=== PATIENT | female | born 1955 | race Caucasian/White ===

== ENCOUNTER 2021-06-24 10:00 | Outpatient (RCR) | payer MEDICARE, SELFPAY ==
--- NOTE | 2021-04-28 13:55 | PTOPEVAL ---
PHYSICAL THERAPY EVALUATION and PLAN OF CARE Thank you for referring Nicolette Mtz to [facility].? The patient is scheduled to be seen for therapy? 2x/week for 4 weeks. Please review, sign, date and return this plan of care DILIA. I agree with and certify that the following plan of care is medically necessary. Referring Physician Date Referring Provider: Gina Giles Evaluation Outpatient Past Medical History Neurological History Hx Other Neurological Disorders Yes: bilateral peripheral neuropathy Cardiovascular History Hx Hypertension Yes Respiratory History Hx Asthma Yes: exertional only, rescue inhaler Musculoskeletal History Hx Osteoporosis Yes Psychosocial History Hx Post Traumatic Stress Disorder Yes: just completed 6 months of rehab Diagnosis low back pain, B hip pain, B knee pain Onset chronic Subjective Information Has history of arthritis. The Query Text:As Reported By Patient/ pain was controlled with Family meloxicam, but the kidneys were starting to be effected and so she was taken off of that. She tried cymbalta but that had poor side effects and doctor is reluctant to put back on meloxicam so we are trying therapy. The back is typically the worst and with the knees the pain is effecting her day to day. When she was taking the meloxicam she was walking regularly and exercising throughout the week. Now that she is not taking medication she is not exercising anymore. Stairs: goes one step at a time. States she can stumble when she is walking Self Report Pain Assessment Bilateral Knee(s) Reported Pain Level 6 Pain Description Aching,Tightness Pain Frequency Chronic,Continuous Pain Aggravating Factors Stair Climbing,Weight Bearing/ Standing Pain Behaviors Anxious,Guarding Spine, Lumbar Reported Pain Level 6 Pain Description Aching,Tightness Radicular Pain Location right hip Pain Frequency Chronic,Continuous Pain Aggravating Factors Palpation,Stair Climbing,
--- NOTE | 2021-04-30 11:27 | PCPTNOTE ---
Patient did not show for appointment this date. Called and spoke with patient who states she forgot about her appointment today. Reminded patient of upcoming appointment on 05/05/21.
--- NOTE | 2021-05-27 10:47 | PTOPEVAL ---
PHYSICAL THERAPY PROGRESS REPORT Thank you for referring Nicolette Mtz to [facility].? The patient is scheduled to be seen for therapy? 1x/week for 5 weeks. Please review, sign, date and return this plan of care DILIA. I agree with and certify that the following plan of care is medically necessary. Referring Physician Date Referring Provider: Gina Giles Diagnosis low back pain, B hip pain, B knee pain Onset chronic Subjective Information reports that overall her pain Query Text:As Reported By Patient/ is better. States that she is Family bending better. She has been avoiding loading her daughter' s laundry sorter which was an aggravating factor. Self Report Pain Assessment Bilateral Knee(s) Reported Pain Level 5 Pain Description Aching,Tightness Pain Frequency Chronic,Continuous Pain Aggravating Factors Stair Climbing,Weight Bearing/ Standing Additional Pain Comments increased with walking and standing Spine, Lumbar Reported Pain Level 6 Pain Description Aching,Tightness Pain Frequency Chronic,Continuous Pain Aggravating Factors Palpation,Stair Climbing, Walking,Weight Bearing/ Standing Pain Score Pain Score 5,6: Self Report Interventions Used Interventions Used By Clinicians Exercise Pain Relief Interventions Used By Heat,Medication Patient Other Alleviating Interventions tylenol arthritis every 8 hours, gabapentin Cervical and Lumbar ROM Lumbar ROM Lumbar Flexion (0-90) 40 Query Text:Active in Degrees Lumbar Flexion Active [place] Query Text:Hands to: Lumbar Extension (0-40) 8 Query Text:Active in Degrees Lateral Rotation Right (0-45) 25 Query Text:Active in Degrees Lateral Rotation Left (0-45) 25 Query Text:Active in Degrees Lower Extremity Muscle Strength Testing Hip Strength Right Hip Flexion Strength 4 Good Hip Extension Strength 3- Fair - Hip Abduction Strength 3 Fair Left Hip Flexion Strength 4 Good Hip Extension Strength 3- Fair - Hip Abduction Strength 3+ Fair + Knee Strength Left Knee Flexion Strength 5 Normal Knee Extension Strength 5 Normal Ankle Strength Bilateral Ankle Dorsiflexion Strength 5 Normal Ankle Plantarflexion Strength 4 Good Muscle Length Testing Muscle Length Testing Left Hamstring Length -30
--- NOTE | 2021-06-29 10:07 | PCPTNOTE ---
Patient called & cancelled scheduled appointment this date due to going for a COVID TEST.
--- NOTE | 2021-07-15 10:37 | PCPTNOTE ---
PHYSICAL THERAPY DISCHARGE NOTE Patient:Nicolette Mtz Date of :1955 Patient has not returned for any further treatments since 06/24/2021, therefore she will be discharged at this time. Patient?s initial visit was on 04/28/2021. The goals have been partially met. Thank you for referring this patient to [facility]. Please review, sign, date and return this discharge summary DILIA. I have been updated about the patient's current status and I agree with discharge from the above service at this time. Referring Physician Date
== END 2021-07-16 10:19 | disposition home or self-care (01) ==
LOC: ANHPT 10:00
DX: M54.50 Low back pain, unspecified (principal); M25.551 Pain in right hip; M25.552 Pain in left hip; M25.561 Pain in right knee; M25.562 Pain in left knee; G89.29 Other chronic pain
CPT/HCPCS: 97110; 97140; 97163

== ENCOUNTER → 2021-07-02 00:57 | Outpatient (CLI) | payer MEDICARE, SELFPAY ==
[2021-07-03 18:18] LABS: SARS-CoV-2 RNA PCR Negative
== END ==
DX: Z20.822 Contact with and (suspected) exposure to COVID-19 (principal)
CPT/HCPCS: C9803; U0003; U0005

== ENCOUNTER 2025-05-02 08:00 | Outpatient (RCR) | payer MEDICARE, SELFPAY ==
--- NOTE | 2025-02-24 11:54 | OTOPEVAL1 ---
Assessment and note entered by Karl Shannon, BRITTANY/Jamal, CHT Evaluation Information Assessment Status Evaluation Diagnosis Injury of left wrist ICD-10 Condition Codes (OT) Pain in right wrist M25.531 Subjective Information Patient fell and sustained a left distal radius fracture 12/23/24. Non operative. She reports no pain at rest, but pain with particular wrist motions. She states that functionally she is limited with being able to open jars, soda bottles , cooking, and pinching to don socks and pants. Reported Pain Level Pain Score 0: Self Report Additional Pain Score Comments No pain at rest. 12/26 with wrist deviation. Assessment OT Clinical Summary Patient referred to OT s/p left wrist fracture as well as de Quervain's tenosynovitis. She presents with stiffness, pain, and weakness that limits return to left hand use for ADLs. Skilled OT indicated to maximize functional strength and use of her left UE. Plan of Care Interventions Therapeutic Exercise,Manual Therapy,Therapeutic Activities,Hot Pack/Cold Pack,Ultrasound,Paraffin OT Services Indicated Yes Treatment Frequency and 2x/week for 8 visits Duration These treatments will address the objective and functional deficits as defined above. The patient will be advanced safely and appropriately in order for the patient to progress towards his/her prior level of function. Additional exercises will be introduced and as well as a comprehensive home exercise program upon discharge, if needed, ?to ensure carryover of functional gains achieved in the clinic. This treatment plan has been reviewed and agreement upon by the patient.
--- NOTE | 2025-02-24 11:55 | OPREHPOC ---
Outpatient Therapy Plan of Care This is a Multidisciplinary Plan of Care that may contain components documented by all disciplines (PT, OT, and ST.) OT Problem 1 OT Problem #1 Knowledge Deficit OT Goal 1 Goal / Goal Update 1. Patient to be independent with instructed materials. Target Visit 8 OT Problem 2 OT Problem #2 Pain OT Goal 1 Goal / Goal Update 1. Patient to report reduced left wrist pain to 2/ 10 or less with ROM, specifically in the 1st and 2nd dorsal compartments (de Quervain's). Target Visit 8 OT Problem 3 OT Problem #3 Impaired Range of Motion OT Goal 1 Goal / Goal Update Patient to increase active ROM of the left wrist to increase functional flexibility for ADLs: 1. wrist flexion to 50 2. wrist extension to [address] to 15 4. wrist UD to 35 Target Visit 8 OT Problem 4 OT Problem #4 Impaired Strength OT Goal 1 Goal / Goal Update Patient to increase functional strength of the left wrist/hand to increase functional use for ADLs: 1. be able to progress to red putty for HEP 2. be able to progress to 1 lb. strengthening of the wrist in all planes x20 reps Target Visit 8
--- NOTE | 2025-03-03 13:02 | PCOTNOTE ---
Patient did not show up for scheduled appointment this date. Called patient who reports she just missed the appointment. Reminded her of her appointment on .
--- NOTE | 2025-03-24 09:05 | OTOPPROG ---
Assessment and note entered by Karl Shannon, OTR/L, CHT OT Progress Update 03/24/25 Assessment Status Progress Diagnosis Injury of left wrist ICD-10 Condition Codes (OT) Pain in right wrist M25.531 Subjective Information Patient reports progress since beginning therapy. She notes she is having less pain and is able to move through more ROM with less pain. 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 For example, when cooking she is able to move a kauffman to a near-by burner with the left hand, but if she needs to carry the kauffman any distance or if she needs to dump a kauffman out she continues to require the use of both UEs for this. She reports she is doing well with doing the dishes now. She states she is able to do plates and silverware with very low pain. She notes she will let pots and pans soak so it's easier for her to scrub. With pinching to don socks and pulling up pants - pt is now able to use the left to help compared to having the right hand to all of the task. ROM improvements: - supination improved from 75 to 80 deg., pain with forearm rotation decreased from 8-9/10 to 1/10 - pronation improved from 75 to 80 deg., pain with forearm rotation decreased from 8-9/10 to 1/10 - wrist flexion improved from 45 to 55 deg. - wrist extension improved from 50 to 60 deg. - wrist RD improved from 10 to 20 deg. - wrist UD improved from 15 tp 25 deg. - finger and thumb ROM remained WFL, pain with thumb ROM reduced from 8/10 to 0/10 (R) planning advisor strength 49 lbs. (L) planning advisor strength 39 lbs. Assessment OT Clinical Summary Patient referred to OT s/p left wrist fracture as well as dx of de Quervain's tenosynovitis. She is making excellent progress. Her ROM has returned to functional limits and she is experiencing less pain with ROM and functional use. She demonstrates residual weakness that limits return of use for heavier ADLs such as lifting pots/pans. She continues to experience pain when the wrist is stressed with resistive ADLs. Continued skilled OT indicated for continued use of modalities, progressive therapeutic exercise, manual therapy, and HEP progression to facilitate optimal functional use, reduced pain, and improved strength. Plan of Care Interventions Therapeutic Exercise,Manual Therapy,Therapeutic Activities,Hot Pack/Cold Pack,Ultrasound,Paraffin OT Services Indicated Yes Treatment Frequency and 2x/week for 8 visits Duration These treatments will address the objective and functional deficits as defined above. The patient will be advanced safely and appropriately in order for the patient to progress towards his/her prior level of function. Additional exercises will be introduced and as well as a comprehensive home exercise program upon discharge, if needed, ?to ensure carryover of functional gains achieved in the clinic. This treatment plan has been reviewed and agreement upon by the patient.
--- NOTE | 2025-03-24 09:06 | OPREHPOC ---
Outpatient Therapy Plan of Care This is a Multidisciplinary Plan of Care that may contain components documented by all disciplines (PT, OT, and ST.) OT Problem 1 OT Problem #1 Knowledge Deficit OT Goal 1 Goal / Goal Update 1. Patient to be independent with instructed materials. ---OT POC UPDATE 03/24/25--- 1. Met, continue as HEP is progressed Target Visit 16 OT Problem 2 OT Problem #2 Pain OT Goal 1 Goal / Goal Update 1. Patient to report reduced left wrist pain to 2/ 10 or less with ROM, specifically in the 1st and 2nd dorsal compartments (de Quervain's). ---OT POC UPDATE 03/24/25--- 1. Progressing, at times experiencing 6/10 with heavy lifting, continue to treat pain Target Visit 16 OT Problem 3 OT Problem #3 Impaired Range of Motion OT Goal 1 Goal / Goal Update Patient to increase active ROM of the left wrist to increase functional flexibility for ADLs: 1. wrist flexion to 50 2. wrist extension to [address] to 15 4. wrist UD to 35 ---OT POC UPDATE 03/24/25--- 1. Met 2. Met 3. Met 4. Met Target Visit 16 OT Problem 4 OT Problem #4 Impaired Strength OT Goal 1 Goal / Goal Update Patient to increase functional strength of the left wrist/hand to increase functional use for ADLs: 1. be able to progress to red putty for HEP 2. be able to progress to 1 lb. strengthening of the wrist in all planes x20 reps ---OT POC UPDATE 03/24/25--- 1. 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 Met - Upgrade goal: Progress to 2 lb. strengthening x20 reps Target Visit 16
--- NOTE | 2025-05-02 08:54 | OTOPDC ---
Assessment and note entered by Karl Shannon, BRITTANY/Jamal, CHT Assessment Status Discharge Diagnosis Injury of left wrist ICD-10 Condition Codes (OT) Pain in right wrist M25.531 Subjective Information Patient reports continued progress from last month . She notes overall experiencing less wrist pain with ADLs. She reports improved abilities to hold her books/Lui longer. She reports feeling like she is getting stronger, which has allowed her improved abilities to use the left hand to wash dishes and carry bags of groceries. She is now mostly back to grocery shopping on her own. She is now able to carry a laundry basket, using both UEs. She reports pain with prolonged UE use, like if she's driving a longer distance or holding a book for too long. ROM improvements: - supination remained WFL at 80 deg. - pronation remained WFL at 80 deg. - wrist flexion improved from 55 to 60 deg. - wrist extension remained WFL at 60 deg. - wrist RD remained WFL at 20 deg. - wrist UD remained WFL at 25 deg. - finger and thumb ROM remained WFL (R) [employer] systems administrator strength 59 lbs. (L) [employer] systems administrator strength improved from 39 lbs. to Reported Pain Level Pain Score 0: Self Report Additional Pain Score Comments No pain at rest. Pain at worst can get up to 3-4 /10 with prolonged use without a proper rest. Assessment OT Clinical Summary Patient referred to OT s/p left wrist fracture as well as dx of de Quervain's tenosynovitis. She has made excellent progress with therapy and has been compliant with all materials. Her ROM has returned to normal limits. Strength continues to make progress and she continues to use heavier hand weights for strengthening. She is progressing use during ADLs, performing heavier tasks with less pain. At this time she is independent with all materials and is ready for discharge. D/C OT with goals met and patient independent with HEP. Plan of Care OT Services Indicated No
--- NOTE | 2025-05-02 08:54 | OPREHPOC ---
Outpatient Therapy Plan of Care This is a Multidisciplinary Plan of Care that may contain components documented by all disciplines (PT, OT, and ST.) OT Problem 1 OT Problem #1 Knowledge Deficit OT Goal 1 Goal / Goal Update 1. Patient to be independent with instructed materials. ---OT POC UPDATE 03/24/25--- 1. Met, continue as HEP is progressed ---OT D/C 05/02/25--- 1. Met Target Visit 16 OT Problem 2 OT Problem #2 Pain OT Goal 1 Goal / Goal Update 1. Patient to report reduced left wrist pain to 2/ 10 or less with ROM, specifically in the 1st and 2nd dorsal compartments (de Quervain's). ---OT POC UPDATE 03/24/25--- 1. Progressing, at times experiencing 6/10 with heavy lifting, continue to treat pain ---OT D/C 05/02/25--- 1. Met Target Visit 16 OT Problem 3 OT Problem #3 Impaired Range of Motion OT Goal 1 Goal / Goal Update Patient to increase active ROM of the left wrist to increase functional flexibility for ADLs: 1. wrist flexion to 50 2. wrist extension to [address] to 15 4. wrist UD to 35 ---OT POC UPDATE 03/24/25--- 1. Met 2. Met 3. Met 4. Met Target Visit 16 OT Problem 4 OT Problem #4 Impaired Strength OT Goal 1 Goal / Goal Update Patient to increase functional strength of the left wrist/hand to increase functional use for ADLs: 1. be able to progress to red putty for HEP 2. be able to progress to 1 lb. strengthening of the wrist in all planes x20 reps ---OT POC UPDATE 03/24/25--- 1. 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 Met - Upgrade goal: Progress to 2 lb. strengthening x20 reps ---OT D/C 05/02/25--- 1. Met 2. Met Target Visit 16
== END 2025-05-02 11:06 | disposition home or self-care (01) ==
LOC: ANHOT 08:00
DX: S69.92XD Unspecified injury of left wrist, hand and finger(s), subsequent encounter (principal)
CPT/HCPCS: 97018; 97035; 97110; 97140; 97165; 97530

== ENCOUNTER 2025-06-18 09:17 | Emergency (ER) | payer MEDICARE, OTHER, SELFPAY ==
--- NOTE | ~2025-06-18 | CT_ITS ---
EXAMINATION: CTA chest PE protocol DATE: 06/18/2025 11:20 CIVIL DEFENSE DIRECTOR INDICATION: Midsternal chest pain TECHNIQUE: Computed tomographic angiography (CTA) of the chest was performed with 100 mL Omnipaque-350 intravenous contrast. The dose-length product was 824.00 mGy-cm. Maximum intensity projection 3D-reconstructions of the aorta and other arteries were constructed by the technologist on a separate workstation. COMPARISON: CT abdomen dated 01/11/2017. FINDINGS: No evidence for pulmonary embolism. Patchy groundglass opacities. No focal consolidation. Mild emphysema. No suspicious pulmonary nodules. No endobronchial lesions. Borderline cardiomegaly. No thoracic lymphadenopathy. No pleural effusion. Postsurgical changes upper abdomen compatible with prior Paras-en-Y procedure. No acute osseous abnormality. IMPRESSION: 1. No evidence for pulmonary embolism. 2: Patchy bilateral groundglass opacities, nonspecific; may reflect infectious, inflammatory or atypical pneumonitis-clinical correlation recommended. Reviewed, dictated and finalized at location O. L DEFENSE DIRECTOR
--- NOTE | ~2025-06-18 | XR_ITS ---
EXAMINATION: XR chest 2V DATE: 06/18/2025 10:15 INDICATION: Chest pain TECHNIQUE: frontal and lateral views of the chest were obtained. COMPARISON: None FINDINGS: The lungs are clear with no focal airspace opacities, pulmonary edema, pleural effusion or pneumothorax. The cardiomediastinal silhouette is normal. Calcified mediastinal lymph nodes consistent with old granulomatous disease. IMPRESSION: 1. No acute cardiopulmonary disease. Reviewed, dictated and finalized at location A. O PRESENTER
--- NOTE | 2025-06-18 09:19 | ECG_ITS ---
Test Date: 2025-06-18 09:24:09 Measurements Intervals [place] Rate: 70 P: 18 CT: 193 QRS: -24 QRSD: 76 T: -8 QT: 357 QTc: 386 Interpretive Statements SINUS RHYTHM LOW QRS VOLTAGE IN PRECORDIAL LEADS ANTERIOR INFARCT, AGE INDETERMINATE CONSIDER INFERIOR INFARCT, AGE INDETERMINATE BASELINE ARTIFACT- I, II, III, AVR ABNORMAL ECG No previous ECG available for comparison Electronically Signed On 06-18-2025 09:27:19 EMERGENCY GENERATOR MECHANIC by Travis Carroll D.O.
--- OUTSIDE RECORDS SUMMARY | 2025-06-18 09:20 | XMS_ITS | Clinical Summary ---
Author Organization [address] Address [address] [place] [address] Care Team Providers Care Property Accountant Name Role Phone Vicenta Key MD Primary Care [facility], [facility] Unavailable Unav ailable Allergies Active Allergy Reactions Criticality Noted Date Comments Codeine Stomach upset High 08/22/2011 Hydrocodone-Acetaminophen Stomach upset High 012 Itraconazole Hives,Rash High 08/22/2011 Itching Tramadol Hcl Other (See comments) Low 02/08/2019 Intolerance Medications ibandronate (BONIVA) 3 mg/3 mL syringe Infuse 3 mL (3 mg total) into a venous catheter once Active colesevelam (WELCHOL) 625 mg tablet TAKE 3 TABLETS BY MOUTH TWICE DAILY WITH MEALS 3 Active lisinopriL (PRINIVIL,ZESTRI L) 5 mg tablet Take 1 tablet (5 mg total) by mouth daily Active potassium chloride ER 10 mEq CR tablet Take 1 tablet/capsule (10 mEq total) by mouth daily 3 Active oxyBUTYnin (DITROPAN) 5 mg tablet Take 1 tablet (5 mg total) by mouth daily Active omeprazole (PriLOSEC) 40 mg capsule Take 1 capsule (40 mg total) by mouth daily 3 Active Lactobacillus rhamnosus GG (CULTURELLE) 10 billion cell capsule Take 1 capsule by mouth daily Active folic acid (FOLVITE) 400 mcg tablet Take 1 tablet (400 mcg total) by mouth daily Active cyanocobalamin (Vitamin B-12) 1,000 mcg tablet Take 1 tablet (1,000 mcg total) by mouth daily Active cranberry 500 mg capsule Take 500 mg by mouth Active cholecalciferol (VITAMIN D-3) 2000 unit capsule Take 1 capsule (2,000 Units total) by mouth daily Active calcium carbonate-vitami n D3 (CALTRATE 600 + D) 1500 mg (600 mg elemental) -400 units per tablet Take 2 tablets by mouth daily Active albuterol HFA (PROVENTIL HFA,VENTOLIN HFA,PROAIR HFA) 90 mcg/actuation inhaler USE 2 INHALATIONS BY MOUTH EVERY 4 TO 6 HOURS NEEDED FOR SHORTNESS OF BREATH 3 Active famotidine (PEPCID) 40 mg tabletIndication s:Gastroesophage al reflux disease without esophagitis Take 1 tablet (40 mg total) by mouth nightly as needed for heartburn 30 tablet 3 3 Active glucosamine/neris dr huy sumner (glucosamine-cho ndroitin) 1,500-1,200 mg/30 mL liquid Take by mouth Active ondansetron (ZOFRAN) 8 mg tablet Take 1 tablet (8 mg total) by mouth every 8 (eight) hours as needed for nausea or vomiting Active propranoloL (INDERAL) 40 mg tablet Take 0.5 tablets (20 mg total) by mouth 3 (three) times a day Active gabapentin (NEURONTIN) 400 mg capsule Take 1 capsule (400 mg total) by mouth nightly Active gabapentin (NEURONTIN) 300 mg capsule Take 1 capsule (300 mg total) by mouth daily Active biotin 5 mg capsule Take 2 capsules (2 tablets total) by mouth 1 Active ciclopirox (PENLAC) 8 % solution Apply topically 4 Active DULoxetine (CYMBALTA) 20 mg capsule Take 2 capsules (40 mg total) by mouth 5 Active rimegepant (NURTEC ODT) tablet,disintegr ating Place 1 tablet (75 mg total) under the tongue 4 Active traZODone (DESYREL) 100 mg tablet Take 1 tablet (100 mg total) by mouth nightly 5 Active Active Problems Problem Noted Date Diagnosed Date Abnormal finding of blood chemistry, unspecified 01/29/2025 Adjustment disorder with mixed anxiety and depre ssed mood 01/29/2025 Bladder dysfunction 01/29/2025 Depressive disorder 01/29/2025 Dry eye syndrome of bilateral lacrimal glands Exposure to potentially hazardous substance 01/17 Overview (01/29/2025): Dec 08, 2023 Entered By: YUE KOO I Comment: contaminated water - [place], Junaid Kim Impacted cerumen, right ear 01/29/2025 Influenza due to identified novel influenza A virus with other respiratory manifestations 01/29/2025 Irritable bowel syndrome with diarrhea Major depressive disorder, single episode, unspe cified 01/29/2025 Migraine with aura, not intr actable, without status migrainosus 01/29/2025 Obesity 01/29/2025 Overview (01/29/2025): Feb 08, 2024 Entered By: ZAHIRA PIZANO Comment: gastric bypass surg Asthma 01/29/2025 Overview (01/29/2025): May 29, 2024 Entered By: ZAHIRA PIZANO Comment: exercise induced Other reactions to severe stress 01/29/2025 Polyneuropathy due to other toxic agents 025 Post-traumatic stress disorder, unspecified 01/17 CKD (chronic kidney disease) , symptom management only, stage 3 (moderate) 09/13/2024 Gastroesophageal reflux disease without esophagi tis 01/30/2023 Assessment & Plan (01/30/2023 9:08 AM CDT): Chronic GERD, not well controlled despite PPI daily. Having to take Tums 4 times a day. Patient also has a history of gastric bypass with anastomotic stenosis status post dilation in the past. -continue PPI daily -start famotidine 40 mg q.h.s. -schedule EGD -The risks (risks of bleeding, infection, perforation requiring surgery, missed polyps/cancer, dental injury, aspiration pneumonia, anesthesia complications such as drug reaction and cardiopulmonary complications including rare chance of ), benefits, and alternatives of the planned procedure were explained to the patient who understands and consents to having procedure done. -RECOMMENDATIONS given include: anti-reflux maneuvers, Avoid acidic foods like oranges and tomatoes., avoidance of spicy foods, avoid eating 3-4 hours before bed, elevation of the head of the bed, and weight loss History of colon polyps 01/30/2023 Assessment & Plan (01/30/2023 9:07 AM CDT): Prior GI records reviewed. Colonoscopy December 2011 with suboptimal prep, 5 mm transverse colon tubular adenoma. Repeat colonoscopy May 2017 with hemorrhoids and diverticulosis, recommend repeat colonoscopy in 5 years. -schedule colonoscopy -The risks (risks of bleeding, infection, perforation requiring surgery, missed polyps/cancer, dental injury, aspiration pneumonia, anesthesia complications such as drug reaction and cardiopulmonary complications including rare chance of ), benefits, and alternatives of the planned procedure were explained to the patient who understands and consents to having procedure done. Facet arthritis of lumbar region 05/28/2021 Basal cell carcinoma (BCC) 02/27/2020 Essential (primary) hypertension 02/27/2020 GERD with esophagitis 02/27/2020 Benign head tremor 04/22/2019 Chronic low back pain without sciatica 9 Exercise-induced asthma 04/22/2019 Hypercholesterolemia 04/22/2019 Migraine without aura and responsive to treatmen t 04/22/2019 Osteoarthrosis 04/22/2019 Overactive bladder 04/22/2019 Torticollis 04/22/2019 Vitamin D deficiency 04/22/2019 Age-related osteoporosis wit hout current pathological fracture 04/02/2019 Immunizations Immunization Administration Dates Next Due Influenza, Quad, Adjuvantate d, Intramuscular 04/04/2020 Influenza, Quadrivalent, Spl it, Preservative Free, Intramuscular 04/12/2018,06/08/2017,05/07/2016,07/21,05/18/2012 Influenza, Trivalent, High D ose, Split, Preservative Free, Intramuscular 04/16/2024,06/02/2022,04/02/2021,04/22 Influenza, Unspecified 04/03/2021,04/01/2020 Pneumococcal Conjugate PCV 13 01/22/2015 Pneumococcal Polysaccharide PPV23 04/01/2020,07/2014 Tdap 04/02/2015 ZOSTER LIVE 05/18/2012 ZOSTER Recombinant 12/11/2020,10/23/2020, 021 Surgical History Surgery Date Site/Laterality Comments KIDNEY SURGERY 06/19/1961 - 06/18/1962 BARIATRIC SURGERY 2004 CHOLECYSTECTOMY 06/19/2005 - 06/18/2006 HERNIA REPAIR 06/19/2004 - 06/18/2005 COLONOSCOPY 06/19/2016 - 06/18/2017 UPPER GASTROINTESTINAL ENDOSCOPY 06/19/2016 - 06/18/2017 CARPAL TUNNEL RELEASE 06/19/1992 - 06/18/1993 Bilateral Medical History Medical History Date Comments Kidney disease Delayed emergence from general anesthesia Sleep apnea PONV (postoperative nausea and vomiting) Irritable bowel syndrome GERD (gastroesophageal reflux disease) Migraine Asthma, exercise induced Arthritis Cataract Colon polyp Hypertension Social History Tobacco Use Types Packs/Day Years Used Date Smoking Tobacco: Never Smokeless Tobacco: Never AUDIT-C Answer Date Recorded Q1: How often do you have a drink containing alcohol? Never 03/21/2023 Q2: How many drinks containi ng alcohol do you have on a typical day when you are drinking? Patient does not drink Q3: How often do you have si x or more drinks on one occasion? Never 03/21/2023 Personal Safety Answer Date Recorded Have you ever been in or are you currently in a harmful physical or emotional relationship or is someone making you feel afraid or unsafe? Denies 03/21/2023 Comments Unknown Sex and Gender Information Value Date Recorded Sex Assigned at Not on file Legal Sex Female 11:18 AM CDT Gender Identity Not on file Sexual Orientation Not on file Last Filed Vital Signs Vital Sign Reading Time Taken Comments Blood Pressure 140/66 03/21/2023 9:17 AM CDT Pulse 79 03/21/2023 9:17 AM CDT Temperature 36.3 C (97.4 F) 03/21/2023 8:48 AM CDT Respiratory Rate 16 03/21/2023 9:17 AM CDT Oxygen Saturation 98% 03/21/2023 9:17 AM CDT Inhaled Oxygen Concentration - - Weight 107.5 kg (237 lb) 01/04/2025 8:40 AM CDT Height 172.7 cm (5' 8) 01/04/2025 8:40 AM CDT Body Mass Index 36.04 01/04/2025 8:40 AM CDT Plan of Treatment Health Maintenance Due Date Last Done Comments Breast Cancer Screening-Mammogram 1955 Depression Screening 1955 Hepatitis C Screening 1955 Hepatitis B Screening 01/24/1972 Well Visit 65+ 2019 Fall Risk Assessment 03/21/2024 03/21/2023 Covid-19 Vaccine (2024-07 6 season) 2025 06/02/2022, 02/03/2022, 04/17/2021, Additional history exists Influenza Vaccine (#1) 2025 , 06/02/2022, 04/03/2021, Additional history exists DTaP/Tdap/Td Vaccine (2 - Td or Tdap) 04/02/2025 04/02/2015 Osteoporosis Screening-Bone Density Scan 03/13/2026 03/13/2024, 03/13/2024 Colon Cancer Screening-Colonoscopy 03/21/20262022 Pneumococcal vaccine 65+ Completed 020, 01/22/2015, 07/21/2014 Zoster Vaccine Completed 12/11/2020, 05/0 12/2020, 10/09/2020, Additional history exists Procedures Procedure Name Priority Date/Time Associated Diagnosis Comments COLONOSCOPY 03/21/2023 8:06 AM CDT from Last 3 Months or Most Recently Relevant to Health Maintenance Results * COLONOSCOPY (03/21/2023 8:06 AM CDT) Anatomical Region Laterality Modality Other Narrative Procedure Note Larry Sofia MD - 03/21/2023 8:06 AM CDT [facility] GI ENDOSCOPY Patient Name: Nicolette Mtz Procedure Date: 03/21/2023 8:06 AM Date of : 1955 Admit Type: Outpatient Age: 68 Gender: Female Attending MD: Larry Sofia M.D. Room: 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 Medicines: Monitored Anesthesia Care Complications: No immediate complications. Estimated Blood Loss: Estimated blood loss: none. Procedure: Pre-Anesthesia Assessment: - Prior to the procedure, a History and Physicalwas performed, and patient medications and allergieswere reviewed. The risks and benefits of the procedureand the sedation options and risks were discussed withthe patient. All questions were answered and informed consent was obtained. Patient identification and proposed procedure were verified. After reviewingthe risks and benefits, the patient was deemed in satisfactory condition to undergo the procedure.The anesthesia plan was to use monitored anesthesiacare (MAC). Immediately prior to administration of medications, the patient was re-assessed foradequacy to receive sedatives. The heart rate, respiratory rate, oxygen saturations, blood pressure, adequacyof pulmonary ventilation, and response to care were monitored throughout the procedure. The physical status of the patient was re-assessed after the procedure. The benefits, risks and alternatives of theprocedure and sedation were discussed and informed consentwas obtained. All questions were answered. Please referto the signed informed consent document in the medical record. The scope was passed under direct vision.The [id number] colonoscope was introduced through theanus and advanced to the cecum, identified byappendiceal orifice and ileocecal valve. The colonoscopy was performed without difficulty. The patient tolerated the procedure well. The quality of the bowel preparation was fair. Scope withdrawal time was 21 minutes. Prep was administered in a split dose. Findings: The perianal and digital rectal examinations were normal. There was a large lipoma, 20 mm in diameter, in the ascending colon. Biopsies were taken with a cold forceps for histology. Two polyps were found in the ascending colon. The polyps werediminutive in size. These polyps were removed with a cold biopsy forceps.Resection and retrieval were complete. A 15 mm polyp was found in the transverse colon. The polyp wassessile. Resection and retrieval were complete. An 8 mm polyp was found in the hepatic flexure. The polyp wassessile. The polyp was removed with a hot snare. Resection and retrieval were complete. A few small-mouthed diverticula were found in the sigmoid colon. Non-bleeding internal hemorrhoids were found during retroflexion. The hemorrhoids were small. The exam was otherwise without abnormality. Impression: - Preparation of the colon was fair. - Large lipoma in the ascending colon. Biopsied. - Two diminutive polyps in the ascending colon, removed with a cold biopsy forceps. Resected and retrieved. - One 15 mm polyp in the transverse colon. Resected and retrieved. - One 8 mm polyp at the hepatic flexure, removedwith a hot snare. Resected and retrieved. - Diverticulosis in the sigmoid colon. - Non-bleeding internal hemorrhoids. - The examination was otherwise normal. Recommendation: - Patient has a contact number available for emergencies. The signs and symptoms of potential delayed complications were discussed with thepatient. Return to normal activities tomorrow. Written discharge instructions were provided to thepatient. - High fiber diet. - Continue present medications. - Await pathology results. - Repeat colonoscopy in 3 years for surveillance. - Return to GI clinic as previously scheduled. Larry Sofia M.D. Larry Sofia M.D. 03/21/2023 8:49:56 AM . Number of Addenda: 0 Note Initiated On: 03/21/2023 8:06 AM Recognized by the [place] [employer] for promoting quality in endoscopy Larry Sofia MD ENDOSCOPY PROCEDURES Edited Resu lt - Final from Last 3 Months or Most Recently Relevant to Health Maintenance Insurance Care Teams Property Accountant Relationship Specialty Start Date End Date Vicenta Key MD [address] [place] [address] PCP - General Family Practice 11/07/22 Mango Strickland MD Referring Physician Distance Education Director 01/04/25
[2025-06-18 09:37] VITALS: BP 119/70; PULSE 69; RESP 14; TEMP 37.1; O2SAT 97
[2025-06-18 09:42] LABS: Hematocrit 45.3 % (37.0-47.0); Hemoglobin 14.6 g/dL (12.0-15.0); Immature Granulocyte Percent A 0.1 % (0-0.5); Lymphocytes Absolute Auto 1.84 K/mm3 (0.9-3.2); Mean Corpuscular HGB Conc 32.2 g/dl (32-36); Mean Corpuscular Hemoglobin 29.9 pg (26-34); Mean Corpuscular Volume 92.8 fl (80-100); Nucleated Red Blood Cells Absolute Auto 0.000 K/mm3 (0.0-0.012); Nucleated Red Blood Cells Perc 0.0 % (0.0-0.2); Platelet Count Result 200 k/mm3 (150-375); Red Blood Count 4.88 M/mm3 (4.2-5.4); White Blood Count 8.0 K/mm3 (4.5-10.0)
[2025-06-18 09:52] LABS: Alanine Aminotransferase 20 U/L (6-35); Albumin Level 4.0 g/dL (3.5-5.1); Alkaline Phosphatase 81 U/L (38-126); Anion Gap 3 mmol/L (4-12); Aspartate Amino Transferase 35 U/L (14-36); Bilirubin,Total 0.7 mg/dL (0.2-1.3); Blood Urea Nitrogen 15 mg/dL (7-17); Calcium 9.7 mg/dL (8.4-10.2); Carbon Dioxide 32 mmol/L (22-30); Chloride 103 mmol/L (98-107); Estimated CRCL calculation 62 ml/min; Estimated Glomerular Filt Rate 56; Glucose 120 mg/dL (65-110); Lipase 34 U/L (23-300); Potassium 4.6 mmol/L (3.4-5.0); Sodium 138 mmol/L (137-145); Total Protein 7.6 g/dL (6.3-8.2)
[2025-06-18 10:03] LABS: Troponin I < 0.012 ng/mL (0.000-0.034)
[2025-06-18 10:14] LABS: INR 1.0; Partial Thromboplastin Time 27.7 Seconds (22.3-36.8); Prothrombin Time 13.6 Seconds (11.1-14.7)
--- NOTE | 2025-06-18 10:44 | ED_ITS ---
HPI - Chest Pain General Chief Complaint: Chest Pain Stated Complaint: CP Time Seen by Provider: 06/18/25 10:42 Source: patient Mode of arrival: EMS Limitations: no limitations History of Present Illness HPI narrative: Patient is a 70-year-old female, with PMH of HTN, who presents the ED with report of chest pain. Patient reports she was woken up from her sleep around 3:30 a.m. this morning with squeezing pressure in her midsternal chest. Radiating through to her back. States pain had been constant since the onset. She did sit upright in a recliner chair which improved the pain slightly. EMS was called this morning. They administered nitroglycerin which she reported improved her pain from a 9/10 to a 2/10. She did report having diaphoresis associated with the pain, but denied nausea, shortness of breath. Denies previous history of heart disease. Denies history of hyperlipidemia, diabetes, smoking. Denies pain or swelling in her legs, cough or cold symptoms, fevers. Daughter notes history of hiatal hernia. Related Data Allergies Allergy/AdvReac Type Severity Reaction Status Date / Time itraconazole Allergy Severe HIVES Verified 06/18/25 09:21 adhesive tape AdvReac Severe RASH Verified 06/18/25 09:21 morphine AdvReac Severe MADE HER Verified 06/18/25 09:21 FEEL LIKE SHE WAS HAVING A HEART ATTACK! Review of Systems 2 Review of Systems: All systems reviewed & are unremarkable except as noted in HPI. All systems reviewed & are unremarkable except as noted in HPI and below Exam 2 Narrative: GENERAL: Well appearing, obese with BMI of 34.5, non-toxic, in no acute distress. HEAD: Normocephalic, atraumatic. RESPIRATORY: Airway patent, respirations nonlabored. Clear to auscultation bilaterally, no rales, rhonchi, wheezing. CARDIOVASCULAR: Regular rate and rhythm without murmurs, rubs, or gallops. ABDOMINAL: Soft, minimal tenderness in epigastric region, nondistended. Normoactive BS. MUSCULOSKELETAL: Moves all extremities. No gross deformities. Mild TTP over inferior midsternal chest SKIN: Warm, dry, normal color. NEURO: A&O X3. Speech clear. Cranial nerves II-XII grossly intact. Steady gait. No ataxic movements. PSYCHIATRIC: Appropriate mood and affect. Normal interaction. Course Vital Signs Vital signs: Vital Signs Temperature 98.8 F 06/18/25 09:37 Pulse Rate 69 06/18/25 09:37 Respiratory Rate 14 06/18/25 09:37 Blood Pressure 119/70 06/18/25 09:37 Pulse Oximetry 97 06/18/25 09:37 Oxygen Delivery Room Air 06/18/25 09:37 Temperature 98.8 F 06/18/25 09:37 Pulse Rate 70 06/18/25 13:51 Respiratory Rate 13 06/18/25 13:51 Blood Pressure 130/66 06/18/25 13:51 Pulse Oximetry 97 06/18/25 13:51 Oxygen Delivery Room Air 06/18/25 11:02 [facility] Narrative Medical decision making narrative: Patient presented to ED with midsternal chest pain, radiating through to her back that began around 3:30 a.m. this morning Vital signs stable upon arrival. Patient in no acute distress. EKG was sinus rhythm, some nonspecific T-wave inversions. No acute ST elevation or depression. Baseline troponin undetectable. Chest x-ray is clear Basic laboratory studies are otherwise grossly unremarkable HEART SCORE 4 CTA chest was obtained, negative for PE, showing some nonspecific opacities. Patient denies any recent respiratory complaints. No leukocytosis. No fevers. Low suspicion for pneumonia. 3-hour EKG without interval changes. 3-hour troponin also undetectable Discussed lab and imaging findings, overall non revealing workup at this time. Utilize shared decision-making regarding discharge home versus admission for further cardiac workup based on risk factors/risk analysis. Patient would prefer to go home and follow-up with her primary care doctor. Discussed possible outpatient stress testing. Again patient does not wish to be admitted at this time. Discussed very strict return precautions. Patient and family in agreement with plan, voiced understanding. Discharged in stable condition. Differential Diagnosis Differential Diagnosis: acs, gastritis/gerd, pe, pna, angina, atypical cp, muscular strain Medical Records I have reviewed the following patient records and this information was taken into consideration when formulating the assessment and plan.: previous labs, previous ER visits, previous hospitalizations and previous clinic visits Lab Data [facility] Lab Attestation statement: I personally reviewed the patient's lab results. 06/18/25 09:32 06/18/25 09:32 Labs: Lab Results 06/18/25 06/18/25 Range/Units 09:32 12:18 WBC 8.0 (4.5-10.0) K/mm3 RBC 4.88 (4.2-5.4) M/mm3 Hgb 14.6 (12.0-15.0) g/dL Hct 45.3 (37.0-47.0) % MCV 92.8 (80-100) fl MCH 29.9 (26-34) pg MCHC 32.2 (32-36) g/dl RDW 13.5 (11.5-14.5) % Plt Count 200 (150-375) k/mm3 MPV 10.5 H (7.4-10.4) fl Immature Gran % (Auto) 0.1 (0-0.5) % Neut % (Auto) 68.0 (45.5-73.1) % Lymph % (Auto) 23.1 (18.3-44.2) % [place] % (Auto) 6.9 (2.6-8.5) % Eos % (Auto) 1.4 (0-4.4) % Baso % (Auto) 0.5 (0.2-1.2) % Lymph # (Auto) 1.84 (0.9-3.2) K/mm3 [place] # (Auto) 0.6 (0.1-0.6) K/mm3 Eos # (Auto) 0.1 (0-0.3) K/mm3 Baso # (Auto) 0.0 (0.0-0.1) K/mm3 Abs Immat Gran (auto) 0.01 (0.00-0.031) K/mm3 Absolute Neuts (auto) 5.4 (1.3-6.7) K/mm3 Absolute Nucleated RBC 0.000 (0.0-0.012) K/mm3 Nucleated RBC % 0.0 (0.0-0.2) % PT 13.6 (11.1-14.7) Seconds INR 1.0 APTT 27.7 (22.3-36.8) Seconds Sodium 138 (137-145) mmol/L Potassium 4.6 (3.4-5.0) mmol/L Chloride 103 (98-107) mmol/L Carbon Dioxide 32 H (22-30) mmol/L Anion Gap 3 L (4-12) mmol/L BUN 15 (7-17) mg/dL Creatinine 0.98 (0.7-1.0) mg/dL Estim Creat Clear Calc 62 ml/min Estimated GFR 56 L (59 - ) Glucose 120 H (65-110) mg/dL Calcium 9.7 (8.4-10.2) mg/dL Total Bilirubin 0.7 (0.2-1.3) mg/dL AST 35 (14-36) U/L ALT 20 (6-35) U/L Alkaline Phosphatase 81 (38-126) U/L Troponin I < 0.012 < 0.012 (0.000-0.034) ng/mL Total Protein 7.6 (6.3-8.2) g/dL Albumin 4.0 (3.5-5.1) g/dL Lipase 34 (23-300) U/L Imaging Data Attestation: I personally reviewed and interpreted this imaging study as follows: Radiologist's impression: ITS Impressions Chest X-Ray 06/18/25 10:23 IMPRESSION: 1. No acute cardiopulmonary disease. Chest CTA 06/18/25 11:20 IMPRESSION: 1. No evidence for pulmonary embolism. 2: Patchy bilateral groundglass opacities, nonspecific; may reflect infectious, inflammatory or atypical pneumonitis-clinical correlation recommended. ECG Data EKG #1: Attestation: I personally reviewed and interpreted this ECG as follows: ECG completion date: 06/18/25 ECG completion time: 09:24 normal rate (70), sinus rhythm and non-specific ST changes (some T wave inversions in Lead III/avf) Discharge Plan Discharge Clinical Impression: Atypical chest pain Patient Disposition: Home Condition: Stable Instructions: Antibiotic Form, Angina (ED), Chest Pain (ED) Additional Instructions: Your workup here was reassuring. Follow-up closely with your primary care doctor for further evaluation and potential outpatient stress testing. Return to the ED if you experience worsening or severe chest pain, difficulty breathing, pain or swelling in her legs, unable to keep down food or drink, coughing blood, or any other symptoms of concern. Patient Language: Arabic Follow-up/Referrals: PHYSICIAN NOT ON STAFF,NONSTAFF [Non-Staff] Time of Disposition: 13:42 Quality HEART score for chest pain patients History: moderately suspicious ECG: normal Age: > or = to 65 years Risk factors: 1 or 2 risk factors Troponin: < or = to 1x normal limit Heart score: 4
[2025-06-18 10:57] VITALS: BP 130/58; PULSE 65; RESP 14; O2SAT 98; O2SAT 99
[2025-06-18] MEDS: BELLADONNA ALK/PHENOB ELIX 10 ML, MAG HYDROX/ALUMINUM HYD/SIMETH 30 ML, LIDOCAINE 2% VI... PO (11:27)
[2025-06-18 11:31] VITALS: BP 148/69; PULSE 69; RESP 14; O2SAT 97
--- OUTSIDE RECORDS SUMMARY | 2025-06-18 11:47 | XMS_ITS | Clinical Summary ---
Author Organization [address] Address [address] [place] [address] Care Team Providers Care Air Conditioning Manager Name Role Phone Vicenta Key MD Primary [...] Sofia MD - 03/21/2023 8:06 AM CDT [facility] GI ENDOSCOPY Patient Name: Nicolette Mtz Procedure Date: 03/21/2023 8:06 AM Date of : 1955 Admit Type: Outpatient Age: 68 Gender: Female Attending MD: Larry Sofia M.D. 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 Procedure: Colonoscopy Indications: High risk colon [...] The scope was passed under direct vision.The [id number]-[id number] colonoscope was introduced through theanus and advanced [...] On: 03/21/2023 8:06 AM Recognized by the [place] [employer] for promoting quality in endoscopy Larry Sofia MD ENDOSCOPY PROCEDURES Edited Resu lt - Final from Last 3 Months or Most Recently Relevant to Health Maintenance Insurance Care Teams Air Conditioning Manager Relationship Specialty Start Date End Date Vicenta Key MD [address] [place] [id number] PCP - General Family Practice 11/07/22 Mango Strickland MD Referring Physician Cardiopulmonary Supervisor 01/04/25
--- OUTSIDE RECORDS SUMMARY | 2025-06-18 11:47 | XMS_ITS | Clinical Summary ---
Author Organization [facility] Address [address] [place] [address] Care Team Providers Care De Icer Name Role Phone Unavailable Primary Care Provider Unavailabl e Source Comments [facility],non-owned Affiliates and Associated Physician Practices is amultiple site organization consisting of ambulatory clinics and hospital sitesin [place], [place], [place] and [place]. This disclosure is being madepursuant to the Care Everywhere program and may not contain all information available regarding this patient. Last updated 18.[facility] [employer] Social History Tobacco Use Types Packs/Day Years Used Date Smoking Tobacco: Never Assessed Comments Unknown Sex and Gender Information Value Date Recorded Sex Assigned at Not on file Legal Sex Female 9:38 AM CDT Gender Identity Not on file Sexual Orientation Not on file Plan of Treatment Health Maintenance Due Date Last Done Comments COLOGUARD (AGES 45-75) - COL ON CA SCREENING 1954 COLON MONITORING 1954 COLONOSCOPY - COLON CA SCREENING 1954 CT COLONOGRAPHY - COLON CA SCREENING 1954 Colorectal Cancer Screening 1954 FIT - COLON CA SCREENING 1954 FLEX SIG - COLON CA SCREENING 1954 LIPID TESTING 1954 MAMMOGRAM 1954 HEPATITIS C SCREENING 01/19/1972 DTAP/TDAP/TD VACCINES (1 - Tdap) 1973 PNEUMOCOCCAL VACCINE 50+ (1 of 1 - PCV) 01/24/2004 ZOSTER VACCINE (1 of 2) 01/24/2004 DEPRESSION SCREENING 06/19/2024 COVID-19 VACCINE ( - 2024-2 6 season) 2025 INFLUENZA VACCINE (#1) 2025 Respiratory Syncytial Virus (RSV) Vaccine Pt: or over 60 yrs (1 - 1-dose 75+ series) 2029 BONE DENSITY TESTING Completed 03/13/2024 HEPATITIS B VACCINE Aged Out No longe r eligible based on patient's age to complete this topic HIB VACCINE Aged Out No longer eligi ble based on patient's age to complete this topic HPV VACCINE Aged Out No longer eligi ble based on patient's age to complete this topic MENINGOCOCCAL (Group B) VACC INE SHARED DECISION-MAKING Aged Out No longer eligibl e based on patient's age to complete this topic MENINGOCOCCAL GROUPS A/C/Y/W VACCINE Aged Out No longer eligible b ased on patient's age to complete this topic Procedures Procedure Name Priority Date/Time Associated Diagnosis Comments DEXA BONE DENSITY AXIAL SKELETON Routine 03/13/2024 10:57 AM CDT Osteoporosis, unspecified osteoporosis type, unspecified pathological fracture presence Arthritis, allergic from Last 3 Months or Most Recently Relevant to Health Maintenance Results * Dexa Bone Density Axial Skeleton (03/13/2024 10:57 AM CDT) Anatomical Region Laterality Modality Other 03/13/2024 10:5 8 AM CDT Impressions 03/13/2024 12:55 PM CDT IMPRESSION: WHO category: Osteopenia Please see the PACS images for additional details. World Health Organization definitions of standard deviations relative to the mean T-score: Normal bone density = -1.0 and above Osteopenia = between -1.0 and -2.5 Osteoporosis = -2.5 and below > Dictated by Jair Santoyo (Ad[employer] Developer) 03/13/2024 10:58 AM IWil DO have personally reviewed and interpreted this examination/study. > Interpreting Provider: Wli Carter DO on 03/13/2024 12:55 PM Narrative 03/13/2024 12:55 PM CDT PROCEDURE: DEXA BONE DENSITY AXIAL SKELETON DATE/TIME OF EXAM: 03/13/2024 10:57 AM Indication: M81.0: Osteoporosis, unspecified osteoporosis type, unspecified pathological fracture presence M13.80: Arthritis, allergic COMPARISON: None. LUMBAR SPINE (L1-L4): Bone mineral density (g/cm2): 0.927 Current T-score: -1.1 LEFT FEMORAL NECK: Bone mineral density (g/cm2): 0.651 Current T-score: -1.8 FRAX not reported because: Treated for osteoporosis Procedure Note Wil Carter DO - 03/13/2024 PROCEDURE: DEXA BONE DENSITY AXIAL SKELETON DATE/TIME OF EXAM: 03/13/2024 10:57 AM Indication: M81.0: Osteoporosis, unspecified osteoporosis type,unspecified pathological fracture presence M13.80: Arthritis, allergic COMPARISON: None. LUMBAR SPINE (L1-L4): Bone mineral density (g/cm2): 0.927 Current T-score: -1.1 LEFT FEMORAL NECK: Bone mineral density (g/cm2): 0.651 Current T-score: -1.8 FRAX not reported because: Treated for osteoporosis IMPRESSION: WHO category: Osteopenia Please see the PACS images for additional details. World Health Organization definitions of standard deviations relative to the mean T-score: Normal bone density = -1.0 and above Osteopenia = between -1.0 and -2.5 Osteoporosis = -2.5 and below > Dictated by Jair Santoyo ([employer]obe Developer) 03/13/2024 10:58AM IWil DO have personally reviewed and interpreted this examination/study. > Interpreting Provider: Wil Carter DO on 03/13/2024 12:55 PM Alex Jeter DO DEXA ORDERABLES Charmaine l Result from Last 3 Months or Most Recently Relevant to Health Maintenance Insurance [employer]
--- NOTE | 2025-06-18 12:06 | ECG_ITS ---
Test Date: 2025-06-18 12:24:47 Measurements Intervals [place] Rate: 71 P: 6 RI: 179 QRS: -9 QRSD: 82 T: -3 QT: 387 QTc: 422 Interpretive Statements SINUS RHYTHM BORDERLINE R WAVE PROGRESSION, ANTERIOR LEADS CONSIDER INFERIOR INFARCT, AGE INDETERMINATE BORDERLINE ST-T WAVE ABNORMALITY- ANTERIOR LEADS BASELINE ARTIFACT- I, II, III, AVR, AVL, AVF, V1-V6 ABNORMAL ECG Compared to ECG 06/18/2025 09:24:09 No significant changes Electronically Signed On 06-18-2025 21:28:58 [employer] by Travis Carroll D.O.
[2025-06-18 12:15] VITALS: BP 141/71; PULSE 79; RESP 14; O2SAT 97
[2025-06-18 12:46] LABS: Troponin I < 0.012 ng/mL (0.000-0.034)
[2025-06-18 13:51] VITALS: BP 130/66; PULSE 70; RESP 13; O2SAT 97
== END 2025-06-18 14:04 | disposition home or self-care (01) ==
PROVIDERS: Emergency Medicine; Emergency Provider Physician Assistant
DX: R07.89 Other chest pain (principal); I10 Essential (primary) hypertension
CPT/HCPCS: 36415; 71046; 71275; 80053; 83690; 84484; 85025; 85610; 85730; 93005; 99284; A9270; Q9967